=== PATIENT | female | born 1995 | race Two or more races ===

== ENCOUNTER 2019-12-05 18:34 | Emergency (ER) | payer OTHER ==
[~2019-12-05] VITALS: Ht 170.2 cm; Wt 61.4 kg
[2019-12-05 20:43] VITALS: BP 129/78
== END 2019-12-05 20:50 | disposition home or self-care (01) ==
LOC: EMS 18:41
DX: M54.2 Cervicalgia (principal); M54.6 Pain in thoracic spine; R51 Headache; R42 Dizziness and giddiness; V49.9XXA Car occupant (driver) (passenger) injured in unspecified traffic accident, initial encounter; Y93.89 Activity, other specified; Y92.89 Other specified places as the place of occurrence of the external cause; Y99.8 Other external cause status
CPT/HCPCS: 70450; 72125; 72128; 71045-TC